=== PATIENT | female | born 1965 | race Two or more races ===

== ENCOUNTER 2023-05-13 10:36 | Emergency (ER) | payer OTHER ==
[~2023-05-13] VITALS: Ht 162.6 cm; Wt 72.7 kg
[2023-05-13 11:35] VITALS: BP 128/69
[2023-05-13] MEDS ORDERED: KETOROLAC TROMETH 60MG/2ML VIAL IM ONE (12:00)
[2023-05-13] MEDS ORDERED: IBUP-1456 PO (13:18)
[2023-05-13] MEDS ORDERED: METH-1182 PO (13:18)
== END 2023-05-13 13:26 | disposition home or self-care (01) ==
LOC: ER 10:36 → EDBD 10:36 → ER 13:25
DX: S16.1XXA Strain of muscle, fascia and tendon at neck level, initial encounter (principal); V49.9XXA Car occupant (driver) (passenger) injured in unspecified traffic accident, initial encounter; Y93.89 Activity, other specified; Y92.89 Other specified places as the place of occurrence of the external cause; Y99.8 Other external cause status
CPT/HCPCS: 72040; 72100; 96372; 99284; J1885

== ENCOUNTER 2023-05-28 11:59 | Emergency (ER) | payer OTHER ==
[~2023-05-28 11:59] MED LIST: IBUP-1456 PO; METH-1182 PO
== END 2023-05-28 12:21 | disposition left against medical advice (07) ==
LOC: ER 11:59
DX: M54.89 Other dorsalgia (principal); Z53.21 Procedure and treatment not carried out due to patient leaving prior to being seen by health care provider